=== PATIENT | male | born 1995 | race Asian ===

== ENCOUNTER 2017-04-17 12:53 | Emergency (ER) | payer BC, OTHER ==
[~2017-04-17] VITALS: Ht 170.2 cm; Wt 61.4 kg
[2017-04-17 13:00] VITALS: BP 120/76
[2017-04-17] MEDS ORDERED: IBUP-1022 PO (13:51)
[2017-04-17] MEDS ORDERED: ROBA500T PO (13:51)
== END 2017-04-17 14:00 | disposition home or self-care (01) ==
LOC: M ED 12:53
DX: M62.830 Muscle spasm of back (principal)

== ENCOUNTER 2018-01-02 17:16 | Emergency (ER) | payer OTHER ==
[2018-01-02] MEDS: KETOROLAC 60 MG/2 ML VIAL (J1885) IM (20:34)
[2018-01-02] MEDS: methylPREDNISolone INJ 125 MG/2 ML VIAL (J2930) IM (21:23)
[2018-01-02] MEDS: AZITHROMYCIN 250 MG TAB PO (21:23)
== END 2018-01-02 21:30 | disposition home or self-care (01) ==
LOC: M ED 17:16
DX: J06.9 Acute upper respiratory infection, unspecified (principal); J40 Bronchitis, not specified as acute or chronic; Z79.899 Other long term (current) drug therapy
CPT/HCPCS: J1885